=== PATIENT | male | born 1985 | race Caucasian/White ===

== ENCOUNTER → 2018-06-14 | Outpatient (CLI) | payer OTHER ==
--- NOTE | 2018-06-14 14:03 | DIAGNOSTIC IMAGING REPORT ---
L SHOULDER MIN 2 VIEWS CLINICAL HISTORY: LEFT SHOULDER PAIN pain COMPARISON: None. DISCUSSION: Minimal grade 1 separation left acromioclavicular joint of uncertain age. All remaining bony structures are unremarkable. No evidence for fracture or dislocation. Cortical margins appear to be intact. There is no evidence for soft tissue swelling. IMPRESSION: Grade 1 separation left acromioclavicular joint of uncertain age. Otherwise negative study. The above report was generated using voice recognition software. It may contain grammatical, syntax or spelling errors. Electronically signed by: Alexx Montaño M.D. 06/14/2018 2:01 PM Dictated Date/Time: 06/14/2018 2:00 PM
== END | disposition home or self-care (01) ==
LOC: C.RDSM 13:13
PROVIDERS: ATTEND Internal Medicine
DX: S43.102A Unspecified dislocation of left acromioclavicular joint, initial encounter (principal); X58.XXXA Exposure to other specified factors, initial encounter